=== PATIENT | female | born 1955 | race Caucasian/White ===

== ENCOUNTER 2023-12-31 20:16 | Emergency (ER) | payer MEDICARE, MEDICAID ==
[~2023-12-31] VITALS: Ht 157.5 cm; Wt 64.0 kg
[2023-12-31 20:26] VITALS: TEMP 98.3
[2023-12-31] MEDS: FENTANYL CITRATE/PF 50MCG/ML 2ML VIAL IV ONE (21:25)
[2023-12-31 22:20] VITALS: O2SAT 97
[2023-12-31] MEDS: MIDAZOLAM HCL 2 MG/2 ML VIAL IV ONE (22:20)
[2023-12-31] MEDS: KETAMINE HCL 50 MG/ML 10ML IV ONE (22:21)
[2024-01-01 06:00] VITALS: BP 149/97; PULSE 90; RESP 15; O2SAT 97
== END 2024-01-01 06:30 | disposition home or self-care (01) ==
LOC: ER 20:16
DX: S43.005A Unspecified dislocation of left shoulder joint, initial encounter (principal); S83.005A Unspecified dislocation of left patella, initial encounter; E78.00 Pure hypercholesterolemia, unspecified; W18.39XA Other fall on same level, initial encounter; Y93.89 Activity, other specified; Y92.89 Other specified places as the place of occurrence of the external cause; Y99.8 Other external cause status
CPT/HCPCS: 99291; 23650; 96374; 71045; 73030; 73560; 73590; 73600; 99152; J3010; J3490; J2250; L1830

== ENCOUNTER 2024-08-20 13:54 | Emergency (ER) | payer MEDICARE, MEDICAID ==
[~2024-08-20] VITALS: Ht 157.5 cm; Wt 61.0 kg
[2024-08-20 14:18] VITALS: O2SAT 97
[2024-08-20] MEDS: KETOROLAC 30MG/ML VIAL IM ONE (17:04)
[2024-08-20] MEDS ORDERED: TOPUD MT (19:00)
[2024-08-20] MEDS ORDERED: KETO10TA2 MT (19:00)
[2024-08-20 19:25] VITALS: BP 135/74; PULSE 100; RESP 16; TEMP 36.8; O2SAT 97
== END 2024-08-20 19:25 | disposition home or self-care (01) ==
LOC: ER 13:54
DX: M25.571 Pain in right ankle and joints of right foot (principal); E78.00 Pure hypercholesterolemia, unspecified; Z98.890 Other specified postprocedural states; Z79.899 Other long term (current) drug therapy; W01.0XXA Fall on same level from slipping, tripping and stumbling without subsequent striking against object, initial encounter; Y93.89 Activity, other specified; Y92.89 Other specified places as the place of occurrence of the external cause; Y99.8 Other external cause status
CPT/HCPCS: 99284; 29515; 73610; 73630; 96372; J1885; A6449